=== PATIENT | male | born 1945 | race Caucasian/White ===

== ENCOUNTER 2020-12-02 09:00 | Inpatient (IN) | payer MEDICARE, MEDICAID ==
[~2020-12-02] VITALS: Ht 175.3 cm; Wt 56.2 kg
[2020-12-02] MEDS ORDERED: AZITHROMYCIN 500 MG in DEXT 5% WATER 250 ML IV ONE (10:00)
[2020-12-02] MEDS ORDERED: SODIUM CHLORIDE 0.9% 1000ML BAG (SEPSIS BOLUS) IV ONE (10:00)
[2020-12-02] MEDS ORDERED: CEFTRIAXONE 1 G PREMIX 50 ML IV ONE (10:00)
[2020-12-02 10:28] LABS: CLARITY URINE TURBID (CLEAR); COLOR URINE YELLOW (YELLOW); KETONES URINE NEGATIVE (NEGATIVE); LEUKOCYTE ESTERASE URINE 3+ (NEGATIVE); NITRITE URINE NEGATIVE (NEGATIVE); OCCULT BLOOD URINE 1+ (NEGATIVE); PH URINE 6.5 (4.5-8.0); PROTEIN URINE 1+ (NEGATIVE); SPECIFIC GRAVITY URINE 1.017 (1.005-1.030); UROBILINOGEN URINE 0.2 E.U./dL (0.2-1.0)
[2020-12-02 10:33] LABS: HEMATOCRIT. 37.1 % (42.0-52.0); HEMOGLOBIN. 12.4 g/dL (14.0-18.0); MEAN CORPUSCULAR HEMOGLOBIN 29.2 pg (28.0-32.0); MEAN CORPUSCULAR VOLUME 87.1 fL (80.0-94.0); MEAN PLATELET VOLUME 7.8 fl (7.4-10.4); PLATELET 241 x1000/uL (130-400); RED BLOOD CELL COUNT 4.26 mill/uL (4.7-6.1); RED CELL DISTRIBUTION WIDTH 13.3 % (11.6-14.6)
[2020-12-02 10:43] LABS: CHLORIDE 109 mEq/L (98-107); PROTHROMBIN TIME 11.1 sec (9.6-11.0)
[2020-12-02 10:57] LABS: PLATELET ESTIMATE NORMAL
[2020-12-02] MEDS ORDERED: ACETAMINOPHEN 325MG TABLET PO ONE (16:45)
[2020-12-02] MEDS ORDERED: MAGNESIUM/ALUMINUM HYDROXIDE/SIMETHICONE 30ML UDC PO PRN (18:45)
[2020-12-02] MEDS ORDERED: DEXTROSE 50% WATER 50ML SYRINGE IV PRN (18:45)
[2020-12-02] MEDS ORDERED: DOCUSATE SODIUM 100MG CAPSULE PO PRN (18:45)
[2020-12-02] MEDS ORDERED: NA PHOS,M-B/NA PHOS,DI-BA ENEMA 118ML PR PRN (18:45)
[2020-12-02] MEDS ORDERED: ONDANSETRON HCL 4MG/2ML INJ IV PRN (18:45)
[2020-12-02] MEDS ORDERED: GUAIFENESIN 200MG/10ML SUGAR FREE UDC PO PRN (18:45)
[2020-12-02] MEDS ORDERED: DIPHENHYDRAMINE 50MG/ML VIAL IV PRN (18:45)
[2020-12-02] MEDS ORDERED: HYDROCODONE/ACETAMINOPHEN 5/325MG TABLET PO PRN (18:45)
[2020-12-02] MEDS ORDERED: ACETAMINOPHEN 650MG SUPP PR PRN (18:45)
[2020-12-02] MEDS ORDERED: IPRATROPIUM/ALBUTEROL 0.5-3(2.5)MG/3ML NEB NEB PRN (18:45)
[2020-12-02] MEDS ORDERED: ENOXAPARIN 40MG/0.4ML SYR SUBCUT SCH (19:00)
[2020-12-02 19:08] LABS: BG BASE EXCESS -3.2 mmol/L (-2.0-2.0); BG CARBOXYHEMOGLOBIN 0.3 % (0.5-1.5); BG DEOXYHEMOGLOBIN 3.9 % (0.0-5.0); BG FRACTION INSPIRED OXYGEN 21; BG HCO3 ACT 18.2 mmol/L (22.0-26.0); BG METHEMOGLOBIN 0.3 % (0.0-1.5); BG OXYGEN SATURATION 96.1 % (92.0-98.5); BG OXYHEMOGLOBIN 95.5 % (94.0-97.0); BG PCO2 22.9 mmHg (35.0-45.0); BG PH 7.517 (7.350-7.450); BG PO2 74.1 mmHg (75.0-100.0); BG SAMPLE SITE RIGHT RADIAL; BG TOTAL HEMOGLOBIN 11.4 g/dL (12.0-18.0); BG VENT MODE ROOM AIR
[2020-12-02] MEDS ORDERED: PIPERACILLIN/TAZ 3.375G PREMIX 50 ML IV SCH (19:45)
[2020-12-02] MEDS ORDERED: VANCOMYCIN 1250MG in DEXTROSE 5% WATER 250ML IV NR (20:45)
[2020-12-03] MEDS: BLOOD SUGAR DIAGNOSTIC STRIP TEST SCH ×5 (00:06→21:00)
[2020-12-03] MEDS: INSULIN LISPRO 100 UNITS/ML SUBCUT SCH ×5 (00:06→21:00)
[2020-12-03] MEDS: SODIUM CHLORIDE 0.45% 1,000 ML IV SCH ×3 (00:13→13:58)
[2020-12-03 00:22] LABS: CREATINE KINASE MB FRACTION 1.3 ng/mL (0.5-3.6)
[2020-12-03] MEDS: ACETAMINOPHEN 325MG TABLET PO PRN ×3 (02:06→20:55)
[2020-12-03 02:30] VITALS: BP 121/69
[2020-12-03 04:00] VITALS: BP 100/59
[2020-12-03] MEDS: PIPERACILLIN/TAZOBACTAM 3.375 G in DEXT 5% WATER 100 ML IV SCH ×2 (05:41→15:50)
[2020-12-03 06:58] LABS: HEMATOCRIT. 31.7 % (42.0-52.0); HEMOGLOBIN. 10.4 g/dL (14.0-18.0); MEAN CORPUSCULAR HEMOGLOBIN 28.4 pg (28.0-32.0); MEAN CORPUSCULAR VOLUME 87.1 fL (80.0-94.0); MEAN PLATELET VOLUME 8.4 fl (7.4-10.4); PLATELET 184 x1000/uL (130-400); RED BLOOD CELL COUNT 3.64 mill/uL (4.7-6.1); RED CELL DISTRIBUTION WIDTH 13.4 % (11.6-14.6)
[2020-12-03 07:10] LABS: CHLORIDE 109 mEq/L (98-107)
[2020-12-03 07:21] LABS: HDL CHOLESTEROL 49 mg/dL (40-59)
[2020-12-03 07:22] LABS: T4 FREE 1.04 ng/dL (0.76-1.46)
[2020-12-03 07:25] LABS: CREATINE KINASE MB FRACTION 1.9 ng/mL (0.5-3.6); LDL CHOLESTEROL 64 mg/dL (5-100)
[2020-12-03 07:26] LABS: CREATINE KINASE 580 IU/L (39-308)
[2020-12-03 08:00] VITALS: BP 106/56
[2020-12-03] MEDS ORDERED: VANCOMYCIN 1500MG in DEXTROSE 5% WATER 250ML IV SCH (09:00)
[2020-12-03] MEDS ORDERED: ENOXAPARIN 40MG/0.4ML SYR SUBCUT SCH (09:00)
[2020-12-03] MEDS: FAMOTIDINE 20MG/2ML VIAL IV SCH (09:35)
[2020-12-03] MEDS ORDERED: GENTAMICIN 100MG PREMIX 50 ML IV SCH (11:00)
[2020-12-03] MEDS: VANCOMYCIN 1 G PREMIX 200 ML IV SCH ×2 (11:26→22:47)
[2020-12-03 11:52] LABS: PLATELET ESTIMATE NORMAL
[2020-12-03 12:00] VITALS: BP 135/60
[2020-12-03] MEDS ORDERED: POTASSIUM CHLORIDE INJ 40 MEQ in DEXT 5% WATER 250 ML IV SCH (12:00)
[2020-12-03 14:00] VITALS: BP 115/62
[2020-12-03] MEDS: CARBIDOPA/LEVODOPA 25/250MG TABLET PO SCH ×2 (15:45→18:12)
[2020-12-03 16:00] VITALS: BP 123/72
[2020-12-03] MEDS: MEROPENEM 1,000 MG in SODIUM CHLORIDE 0.9% 100 ML IV SCH (16:12)
[2020-12-03] MEDS ORDERED: AMIKACIN 500MG in SODIUM CHLORIDE 0.9% 100ML IV NR (17:00)
[2020-12-03] MEDS: MIRTAZAPINE 15MG TABLET PO SCH (20:56)
[2020-12-04] VITALS (23 sets, daily range): BP systolic 83–193; BP diastolic 39–105
[2020-12-04] MEDS: SODIUM CHLORIDE 0.45% 1,000 ML IV SCH ×3 (02:21→21:00)
[2020-12-04] MEDS: MEROPENEM 1,000 MG in SODIUM CHLORIDE 0.9% 100 ML IV SCH ×2 (02:26→06:34)
[2020-12-04] MEDS: CLONIDINE 0.1MG TABLET PO PRN ×2 (03:28→22:16)
[2020-12-04] MEDS: LORAZEPAM 0.5MG TABLET PO PRN (05:17)
[2020-12-04] MEDS: MORPHINE SULFATE 2 MG/ML CPJ (NOT FOR IM USE) IV PRN ×3 (05:56→23:27)
[2020-12-04] MEDS ORDERED: AMIKACIN SULFATE IV SCH (06:00)
[2020-12-04] MEDS ORDERED: AMIKACIN SULFATE 400 MG in SODIUM CHLORIDE 0.9% 100 ML IV SCH (06:00)
[2020-12-04] MEDS ORDERED: SODIUM CHLORIDE 0.9% IV SCH (06:00)
[2020-12-04 06:56] LABS: HEMATOCRIT. 33.9 % (42.0-52.0); HEMOGLOBIN. 11.1 g/dL (14.0-18.0); MEAN CORPUSCULAR HEMOGLOBIN 28.9 pg (28.0-32.0); MEAN CORPUSCULAR VOLUME 88.5 fL (80.0-94.0); PLATELET 160 x1000/uL (130-400); RED BLOOD CELL COUNT 3.83 mill/uL (4.7-6.1); RED CELL DISTRIBUTION WIDTH 13.4 % (11.6-14.6)
[2020-12-04 06:58] LABS: CHLORIDE 110 mEq/L (98-107)
[2020-12-04] MEDS: BLOOD SUGAR DIAGNOSTIC STRIP TEST SCH ×4 (07:30→21:00)
[2020-12-04] MEDS: INSULIN LISPRO 100 UNITS/ML SUBCUT SCH ×4 (08:00→21:00)
[2020-12-04] MEDS ORDERED: ENOXAPARIN 30MG/0.3ML SYR SUBCUT SCH (09:00)
[2020-12-04] MEDS ORDERED: LISINOPRIL 40MG TABLET PO SCH (09:00)
[2020-12-04] MEDS: FAMOTIDINE 20MG/2ML VIAL IV SCH (09:28)
[2020-12-04] MEDS: CARBIDOPA/LEVODOPA 25/250MG TABLET PO SCH ×3 (09:29→18:01)
[2020-12-04] MEDS: VANCOMYCIN 1 G PREMIX 200 ML IV SCH ×2 (09:29→21:00)
[2020-12-04] MEDS: ACETAMINOPHEN 325MG TABLET PO PRN (10:31)
[2020-12-04] MEDS ORDERED: POTASSIUM CHLORIDE INJ 40 MEQ in DEXT 5% WATER 250 ML IV SCH (11:00)
[2020-12-04] MEDS ORDERED: SODIUM CHLORIDE 0.9% 500 ML IV ONE (11:45)
[2020-12-04 12:00] LABS: BG BASE EXCESS 0.8 mmol/L (-2.0-2.0); BG CARBOXYHEMOGLOBIN 0.3 % (0.5-1.5); BG DEOXYHEMOGLOBIN 2.3 % (0.0-5.0); BG FRACTION INSPIRED OXYGEN 21; BG HCO3 ACT 23.6 mmol/L (22.0-26.0); BG METHEMOGLOBIN 0.1 % (0.0-1.5); BG OXYGEN SATURATION 97.7 % (92.0-98.5); BG OXYHEMOGLOBIN 97.3 % (94.0-97.0); BG PCO2 31.5 mmHg (35.0-45.0); BG PH 7.492 (7.350-7.450); BG PO2 100.5 mmHg (75.0-100.0); BG SAMPLE SITE RIGHT RADIAL; BG TOTAL HEMOGLOBIN 10.7 g/dL (12.0-18.0); BG VENT MODE ROOM AIR
[2020-12-04] MEDS ORDERED: SODIUM CHLORIDE 0.9% 500 ML IV SCH (13:15)
[2020-12-04] MEDS ORDERED: LIDOCAINE HCL 1% 20ML VIAL (Pyxis) INJ ONE (13:45)
[2020-12-04] MEDS ORDERED: PHENYLEPHRINE 100 MG in DEXT 5% WATER 240 ML IV PRN (14:15)
[2020-12-04] MEDS ORDERED: NOREPINEPHRINE 8 MG in DEXT 5% WATER 242 ML IV PRN (14:30)
[2020-12-04 14:32] LABS: PLATELET ESTIMATE NORMAL
[2020-12-04] MEDS: CEFTAZIDIME PENTAHYDRATE 2 G in DEXT 5% WATER 100 ML IV SCH ×2 (16:44→22:15)
[2020-12-04] MEDS: LEVOFLOXACIN 500MG PREMIX 100 ML IV SCH (17:34)
[2020-12-04] MEDS ORDERED: IOHEXOL-300 50 ML BOTTLE IV ONE (19:11)
[2020-12-04] MEDS: MIRTAZAPINE 15MG TABLET PO SCH (21:00)
[2020-12-04] MEDS: METRONIDAZOLE 500MG TABLET PO SCH (21:00)
[2020-12-04] MEDS ORDERED: AMOXICILLIN 250MG/5ML ORAL SYRINGE PO SCH (22:00)
[2020-12-04] MEDS ORDERED: MEROPENEM-0.9% SODIUM CHLORIDE 50 ML IV SCH (22:00)
[2020-12-05] VITALS (45 sets, daily range): BP systolic 86–156; BP diastolic 50–121
[2020-12-05 04:44] LABS: HEMATOCRIT. 31.8 % (42.0-52.0); HEMOGLOBIN. 10.2 g/dL (14.0-18.0); MEAN CORPUSCULAR VOLUME 86.8 fL (80.0-94.0); MEAN PLATELET VOLUME 8.9 fl (7.4-10.4); PLATELET 150 x1000/uL (130-400); RED BLOOD CELL COUNT 3.66 mill/uL (4.7-6.1); RED CELL DISTRIBUTION WIDTH 13.5 % (11.6-14.6)
[2020-12-05 04:58] LABS: CHLORIDE 108 mEq/L (98-107)
[2020-12-05] MEDS: CEFTAZIDIME PENTAHYDRATE 2 G in DEXT 5% WATER 100 ML IV SCH ×3 (05:03→22:13)
[2020-12-05] MEDS: BLOOD SUGAR DIAGNOSTIC STRIP TEST SCH ×4 (05:37→20:01)
[2020-12-05] MEDS: INSULIN LISPRO 100 UNITS/ML SUBCUT SCH ×4 (06:11→20:10)
[2020-12-05] MEDS: METRONIDAZOLE 500MG TABLET PO SCH (08:57)
[2020-12-05] MEDS: CARBIDOPA/LEVODOPA 25/250MG TABLET PO SCH ×3 (08:57→16:42)
[2020-12-05] MEDS: FAMOTIDINE 20MG/2ML VIAL IV SCH (08:57)
[2020-12-05] MEDS: VANCOMYCIN 1 G PREMIX 200 ML IV SCH (08:58)
[2020-12-05] MEDS ORDERED: POTASSIUM CHLORIDE 20MEQ TABLET SR PO NR (11:00)
[2020-12-05] MEDS ORDERED: POTASSIUM CHLORIDE INJ 40 MEQ in DEXT 5% WATER 250 ML IV NR (13:00)
[2020-12-05 14:59] LABS: PLATELET ESTIMATE NORMAL
[2020-12-05] MEDS: ENOXAPARIN 30MG/0.3ML SYR SUBCUT SCH (16:42)
[2020-12-05] MEDS: LEVOFLOXACIN 500MG PREMIX 100 ML IV SCH (16:42)
[2020-12-05] MEDS: SODIUM CHLORIDE 0.45% 1,000 ML IV SCH (16:43)
[2020-12-05] MEDS: MORPHINE SULFATE 2 MG/ML CPJ (NOT FOR IM USE) IV PRN (18:08)
[2020-12-05] MEDS: ACETAMINOPHEN 325MG TABLET PO PRN (19:33)
[2020-12-05] MEDS: MIRTAZAPINE 15MG TABLET PO SCH (20:01)
[2020-12-06] VITALS (17 sets, daily range): BP systolic 107–175; BP diastolic 63–123
[2020-12-06] MEDS: SODIUM CHLORIDE 0.45% 1,000 ML IV SCH ×3 (02:03→20:46)
[2020-12-06] MEDS: ACETAMINOPHEN 325MG TABLET PO PRN (02:24)
[2020-12-06] MEDS: CEFTAZIDIME PENTAHYDRATE 2 G in DEXT 5% WATER 100 ML IV SCH ×3 (05:25→22:54)
[2020-12-06 05:47] LABS: CHLORIDE 111 mEq/L (98-107)
[2020-12-06 06:09] LABS: HEMATOCRIT. 32.5 % (42.0-52.0); HEMOGLOBIN. 10.6 g/dL (14.0-18.0); MEAN CORPUSCULAR HEMOGLOBIN 28.2 pg (28.0-32.0); MEAN CORPUSCULAR VOLUME 86.7 fL (80.0-94.0); MEAN PLATELET VOLUME 9.1 fl (7.4-10.4); PLATELET 155 x1000/uL (130-400); RED BLOOD CELL COUNT 3.75 mill/uL (4.7-6.1); RED CELL DISTRIBUTION WIDTH 13.5 % (11.6-14.6)
[2020-12-06] MEDS: BLOOD SUGAR DIAGNOSTIC STRIP TEST SCH ×4 (07:30→21:00)
[2020-12-06] MEDS: INSULIN LISPRO 100 UNITS/ML SUBCUT SCH ×4 (08:00→21:00)
[2020-12-06] MEDS: CARBIDOPA/LEVODOPA 25/250MG TABLET PO SCH ×3 (08:16→17:04)
[2020-12-06] MEDS: FAMOTIDINE 20MG/2ML VIAL IV SCH (08:16)
[2020-12-06 12:17] LABS: PLATELET ESTIMATE NORMAL
[2020-12-06] MEDS: ENOXAPARIN 30MG/0.3ML SYR SUBCUT SCH (17:05)
[2020-12-06] MEDS: LEVOFLOXACIN 500MG PREMIX 100 ML IV SCH (17:05)
[2020-12-06] MEDS: LORAZEPAM 0.5MG TABLET PO PRN (17:45)
[2020-12-06] MEDS: MORPHINE SULFATE 2 MG/ML CPJ (NOT FOR IM USE) IV PRN (20:01)
[2020-12-06] MEDS: MIRTAZAPINE 15MG TABLET PO SCH (20:30)
[2020-12-06] MEDS: CLONIDINE 0.1MG TABLET PO PRN (20:35)
[2020-12-07] VITALS (12 sets, daily range): BP systolic 96–168; BP diastolic 48–103
[2020-12-07] MEDS: CLONIDINE 0.1MG TABLET PO PRN (02:23)
[2020-12-07] MEDS: CEFTAZIDIME PENTAHYDRATE 2 G in DEXT 5% WATER 100 ML IV SCH ×2 (05:30→13:27)
[2020-12-07 06:11] LABS: CHLORIDE 104 mEq/L (98-107)
[2020-12-07 07:06] LABS: HEMATOCRIT. 31.7 % (42.0-52.0); HEMOGLOBIN. 10.6 g/dL (14.0-18.0); MEAN CORPUSCULAR HEMOGLOBIN 28.8 pg (28.0-32.0); MEAN CORPUSCULAR VOLUME 86.4 fL (80.0-94.0); MEAN PLATELET VOLUME 9.3 fl (7.4-10.4); PLATELET 158 x1000/uL (130-400); RED BLOOD CELL COUNT 3.67 mill/uL (4.7-6.1); RED CELL DISTRIBUTION WIDTH 13.2 % (11.6-14.6)
[2020-12-07] MEDS: INSULIN LISPRO 100 UNITS/ML SUBCUT SCH ×4 (08:00→21:00)
[2020-12-07] MEDS: BLOOD SUGAR DIAGNOSTIC STRIP TEST SCH ×4 (08:11→21:00)
[2020-12-07] MEDS: FAMOTIDINE 20MG/2ML VIAL IV SCH (08:12)
[2020-12-07] MEDS: CARBIDOPA/LEVODOPA 25/250MG TABLET PO SCH ×3 (08:12→17:16)
[2020-12-07] MEDS: ACETAMINOPHEN 325MG TABLET PO PRN (08:20)
[2020-12-07] MEDS: SODIUM CHLORIDE 0.45% 1,000 ML IV SCH ×2 (10:00→21:02)
[2020-12-07 13:10] LABS: ATYPICAL LYMPHOCYTES 1
[2020-12-07 13:12] LABS: PLATELET ESTIMATE NORMAL
[2020-12-07] MEDS: ENOXAPARIN 30MG/0.3ML SYR SUBCUT SCH (16:10)
[2020-12-07] MEDS: LEVOFLOXACIN 500MG PREMIX 100 ML IV SCH (17:03)
[2020-12-07] MEDS: MIRTAZAPINE 15MG TABLET PO SCH (21:02)
[2020-12-08] VITALS (13 sets, daily range): BP systolic 95–179; BP diastolic 50–101
[2020-12-08] MEDS: CLONIDINE 0.1MG TABLET PO PRN (00:10)
[2020-12-08] MEDS: CEFTAZIDIME PENTAHYDRATE 2 G in DEXT 5% WATER 100 ML IV SCH ×3 (00:11→13:55)
[2020-12-08 05:58] LABS: CHLORIDE 106 mEq/L (98-107)
[2020-12-08 06:41] LABS: BASOPHILS % 0.4 % (0.0-2.0); EOSINOPHILS % 1.2 % (0.0-5.0); HEMATOCRIT. 32.1 % (42.0-52.0); LYMPHOCYTES % 7.1 % (20.0-50.0); MEAN CORPUSCULAR HEMOGLOBIN 29.3 pg (28.0-32.0); NEUTROPHILS % 77.3 % (40.0-76.0); PLATELET 236 x1000/uL (130-400); RED BLOOD CELL COUNT 3.74 mill/uL (4.7-6.1); RED CELL DISTRIBUTION WIDTH 13.3 % (11.6-14.6)
[2020-12-08] MEDS ORDERED: FAMOTIDINE 20MG TABLET PO SCH (07:30)
[2020-12-08] MEDS: BLOOD SUGAR DIAGNOSTIC STRIP TEST SCH ×3 (07:30→18:12)
[2020-12-08] MEDS: INSULIN LISPRO 100 UNITS/ML SUBCUT SCH ×3 (08:00→18:00)
[2020-12-08] MEDS: CARBIDOPA/LEVODOPA 25/250MG TABLET PO SCH ×3 (08:20→18:11)
[2020-12-08] MEDS: SODIUM CHLORIDE 0.45% 1,000 ML IV SCH (11:07)
[2020-12-08 14:53] LABS: BASOPHILS % 0.2 % (0.0-2.0); EOSINOPHILS % 1.2 % (0.0-5.0); HEMOGLOBIN. 11.2 g/dL (14.0-18.0); LYMPHOCYTES % 7.2 % (20.0-50.0); MEAN CORPUSCULAR VOLUME 85.2 fL (80.0-94.0); MEAN PLATELET VOLUME 7.9 fl (7.4-10.4); MONOCYTES % 13.4 % (2.0-8.0); PLATELET 243 x1000/uL (130-400); RED BLOOD CELL COUNT 3.87 mill/uL (4.7-6.1); RED CELL DISTRIBUTION WIDTH 13.5 % (11.6-14.6)
[2020-12-08] MEDS: ENOXAPARIN 30MG/0.3ML SYR SUBCUT SCH (15:24)
[2020-12-08] MEDS: LEVOFLOXACIN 500MG PREMIX 100 ML IV SCH (18:11)
== END 2020-12-08 20:31 | DRG 871 ==
LOC: ER 09:00 → EDBEDREQ 10:06 → MICUSO 14:50 → EDBEDREQ 14:57 → EDBEDREQSVC 14:57 → EDBEDREQTM 14:57 → SUPCPDRO 19:14 → 5EST 23:37 → MICUSO 12-04 15:25 → 5EST 12-05 21:00
PROVIDERS: ADMIT Internal Medicine; ATTEND Internal Medicine
PROC: 05HY33Z Insertion of Infusion Device into Upper Vein, Percutaneous Approach (ICD-10-PCS; principal; 2020-12-04)
PROC: B54MZZA Ultrasonography of Right Upper Extremity Veins, Guidance (ICD-10-PCS; 2020-12-04)
DX: A41.52 Sepsis due to Pseudomonas (principal); I50.33 Acute on chronic diastolic (congestive) heart failure; N39.0 Urinary tract infection, site not specified; G93.40 Encephalopathy, unspecified; E87.2 Acidosis; R65.20 Severe sepsis without septic shock; D64.9 Anemia, unspecified; E11.65 Type 2 diabetes mellitus with hyperglycemia; E87.6 Hypokalemia; G20 Parkinson's disease; Z20.822 Contact with and (suspected) exposure to COVID-19; N32.3 Diverticulum of bladder; R33.9 Retention of urine, unspecified; F02.80 Dementia in other diseases classified elsewhere, unspecified severity, without behavioral disturbance, psychotic disturbance, mood disturbance, and anxiety; I11.0 Hypertensive heart disease with heart failure; Z88.0 Allergy status to penicillin; Z87.440 Personal history of urinary (tract) infections; Z96.0 Presence of urogenital implants; B95.2 Enterococcus as the cause of diseases classified elsewhere
CPT/HCPCS: 36415; 36600; 71045; 74176; 76857; 76937; 80048; 80053; 80061; 80202; 81003; 82140; 82375; 82550; 82553; 82805; 82962; 83036; 83605; 84145; 84153; 84439; 84443; 84484; 85025; 87077; 87186; 87426; 93005; 93306; 93970; 97162; 99291; C1725; J0278; J0456; J0696; J0713; J1200; J1580; J1650; J1815; J1956; J2185; J2270; J2543; J3370; J3480; J3490; J7030; J7040; J7050; J7060; Q9967; A4315; G0103